=== PATIENT | male | born 1955 | race Hispanic/Latino ===

== ENCOUNTER 2019-01-24 04:03 | Inpatient (IN) | payer SELFPAY ==
[2019-01-24 05:32] LABS: Troponin I 0.216 ng/mL (< 0.028)
[2019-01-24] MEDS ORDERED: Ibuprofen 800 MG TAB ONE (06:23)
--- NOTE | 2019-01-24 07:15 | HP ---
PRESENTING COMPLAINT: Shortness of breath and fever. HISTORY OF PRESENT ILLNESS: Mr. Demarco Sena is a 64-year-old male with past medical history of hypertension, osteoarthritis, coronary artery disease status post SC 3 years ago who presented because of fever, chills, cough and shortness of breath. As per daughter, patient symptoms started since the last two weeks and slowly has been worsening. Daughter also states the patient has been having worsening leg swelling, which the family felt was due to arthritis. The patient is a poor historian, but admits to chills, cough and chest congestion. He states he has sputum with whitish phlegm. He admits to some mild headache, but denies any dizziness. The patient and daughter state he has never been told he has any heart failure symptoms. No history of any sick contacts. PAST MEDICAL HISTORY: Significant for hypertension, osteoarthritis, coronary artery disease with presumed SC 3 years ago. PAST SURGICAL HISTORY: Left cataract surgery. SOCIAL HISTORY: Patient resides in [place] and currently visiting family in the area. No history of tobacco use, history of occasional alcohol intake, but no illicit drug use. FAMILY HISTORY: Noncontributory. Family denies history of coronary artery disease or lung cancer. ALLERGIES: NO KNOWN DRUG ALLERGIES. HOME MEDICATIONS: Waiting nurse reconciliation. Family did not bring home medications yet. REVIEW OF SYSTEMS: Poor due to patient's shivering in bed. The patient denies except as mentioned above x10. PHYSICAL EXAMINATION: CURRENT VITAL SIGNS: Blood pressure 163/90, pulse of 106, respiratory rate of 28-30, O2 saturation 96% on room air, temperature 103. GENERAL: Obese middle-aged male, appears older than stated age. Intermittently drowsy, but arousable. HEAD: Atraumatic, normocephalic. Pupils are equal and reactive to light. Dry oral mucosa with mild fetor. NECK: No JVD. No carotid bruit. RESPIRATORY: Decreased breath sounds at bases and coarse crepitations bilaterally. No wheeze. CARDIOVASCULAR: S1, S2. Tachycardic. No reproducible chest wall tenderness. ABDOMEN: Full, soft, nontender, but bowel sounds positive in all 4 quadrants. EXTREMITIES: 2+ pedal edema bilaterally, but more prominent over the left lower extremity tenderness of left calf noted. NEUROLOGIC: The patient is drowsy, but easily arousable, conversant, poor historian. No slowness speech. No neurological focal motor deficit. LABORATORY DATA: Reviewed. Troponin of 0.216. Flu swab negative. Lactic acid 4.2, BNP of 2200. Chest x-ray shows presumed left lower lobe infiltrate. IMAGING: EKG shows sinus tachycardia with right bundle branch block. IMPRESSION: Left lower lobe pneumonia. Non ST elevation myocardial infarction, likely due to demand ischemia. Acute congestive heart failure exacerbation, likely systolic. Hypertension. Left lower extremity tenderness, rule out deep venous thrombosis. PLAN: We will admit the patient to the telemetry unit who will manage the patient with the followin. Left lower lobe pneumonia. We will start patient on empirical Rocephin and Levaquin. We will obtain blood culture x2. We would use sputum for culture and sensitivity. We will add oxygen to decrease respiratory rate or minimize tachypnea. We will monitor vitals closely. 2. Non-ST myocardial infarction. Consult cardiology. Serial set of cardiac enzymes. I will start the patient on aspirin for now. We will do Lovenox q.12h for now. 3. Presumed systolic congestive heart failure exacerbation. We will obtain echocardiogram. Start Lasix 40 mg q.12. Monitor potassium and magnesium. 4. Lower extremity tenderness. We will obtain Doppler ultrasound to rule out deep venous thrombosis. Follow with empirical heparin, Lovenox dosage. 5. Hypertension. We will obtain home medications. We will do p.r.n. hydralazine for now. We will also start low-dose Coreg given acute coronary syndrome. 6. Deep venous thrombosis prophylaxis, subcutaneous Lovenox. 7. Advanced directives, patient is full code. Total time spent in discussion and evaluation greater than 70 minutes. Job ID: [id number]
[2019-01-24] MEDS ORDERED: Aspirin Chewable 81 MG TAB PO SCH (08:16)
[2019-01-24] MEDS ORDERED: Dextrose 50 % In Water 50 ML SYRINGE IV PRN (08:16)
[2019-01-24] MEDS ORDERED: Guaifenesin DM 100-10/5 ML UDCUP PO PRN (08:16)
[2019-01-24] MEDS ORDERED: Dextrose 5% in Water 1,000 ML IV PRN (08:16)
[2019-01-24] MEDS ORDERED: Nitroglycerin 0.4 MG TAB (25 Tab Bottle) SL PRN (08:16)
[2019-01-24] MEDS ORDERED: Morphine 2 MG/ML SYRINGE SLOW IVP PRN (08:16)
[2019-01-24] MEDS ORDERED: HumaLOG 300 UNITS/3 ML VIAL SC PRN (08:16)
[2019-01-24 08:34] VITALS: BMI 27.2
[2019-01-24] MEDS ORDERED: Furosemide 40 MG/4 ML VIAL SLOW IVP SCH (08:45)
[2019-01-24] MEDS ORDERED: Enoxaparin Sodium 80 MG/0.8 ML SYRINGE SC SCH (09:00)
[2019-01-24] MEDS ORDERED: Lisinopril 2.5 MG TAB PO SCH (09:00)
[2019-01-24] MEDS ORDERED: Vancomycin HCl 1 GM in Premix Bag 1 BAG IVPB SCH (11:00)
[2019-01-24] MEDS: Metoprolol Tartrate 25 MG TAB PO SCH ×2 (11:03→20:41)
[2019-01-24] MEDS: Famotidine 20 MG TAB PO SCH (11:03)
[2019-01-24] MEDS: Cefepime 2 GM in Sodium Chloride 0.9% 100 ML IVPB SCH ×2 (11:24→21:55)
[2019-01-24 12:26] LABS: Creatinine, Urine 67.38 mg/dL (63-166); Protein, Urine Random Quant Less than 10 mg/dL (1-14); Sodium, Urine 72 mmol/L (Not Available); Urea Nitrogen, Random Urine 407 mg/dl
[2019-01-24 12:31] LABS: Anion Gap 17 mmol/L (10-20); BUN (Urea Nitrogen) 25 mg/dL (8.4-25.7); Calc. Creatinine Clearance 54 mL/min (70-130); Calcium 8.5 mg/dL (7.8-10.44); Carbon Dioxide 25 mmol/L (23-31); Chloride 101 mmol/L (98-107); Estimated GFR-MDRD 49; Glucose 85 mg/dL (80-115); Sodium 140 mmol/L (136-145)
[2019-01-24 12:34] LABS: Potassium 2.6 mmol/L (3.5-5.1)
[2019-01-24 12:35] LABS: Troponin I 0.272 ng/mL (< 0.028)
[2019-01-24] MEDS: Vancomycin HCl 1.25 GM in Sodium Chloride 0.9% 250 ML 250 ML IVPB SCH (13:14)
[2019-01-24] MEDS: Acetaminophen 325 MG TAB PO PRN ×2 (13:31→19:34)
[2019-01-24] MEDS: Potassium Chloride 20 MEQ TAB PO SCH ×3 (15:42→21:55)
--- NOTE | 2019-01-24 16:49 | CON ---
DATE OF CONSULTATION: 01/24/2019 INDICATION FOR CONSULTATION: A 64-year-old gentleman who presented with a pneumonia, who is actually from [place]. He was visiting his daughter. He has been here about 3 weeks. Apparently, he woke up last night with fever and chills. He was taken to the emergency room in [place]. He was then transferred here for further evaluation and treatment. He was found to have a right lower lobe pneumonia by chest x-ray. He also was noted to have a dilated heart on the chest x-ray and also his BNP was significantly elevated, compatible with congestive heart failure. He has had a myocardial infarction about 3 years ago. Apparently, he was in the hospital in [place] for about 2-3 weeks, but he only was offered medical treatment. There was no intervention performed. He has had no cardiac catheterization and no interventions as far as we can determine. He does have a history of hypertension, but he did not have any history of hypercholesterolemia or diabetes. He has never smoked. He had no early family history of heart disease. His EKG does indicate that he has had a previous myocardial infarction at least septal, but possibly also inferior myocardial infarction, unclear exactly where his MN was, but it is possible he had a significant myocardial infarction in the past. He denies any chest pain. He just had congestion, cough, and chills. Otherwise, he has been doing relatively well. 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 PAST MEDICAL HISTORY: Significant for; 1. Coronary artery disease. 2. Myocardial infarction about 3 years ago. 3. Hypertension. 4. Osteoarthritis. 5. He has had left cataract surgery. 6. He appears to have gout. SOCIAL HISTORY: He is actually or from his , who is actually also present in the room today. He has children, who are alive and well. His daughter was here today and she was an tin can laborer. He has no alcohol or tobacco abuse. FAMILY HISTORY: Noncontributory. There is no early family history or heart disease. MEDICATIONS: Prior to admission include captopril and nifedipine. ALLERGIES: NONE. REVIEW OF SYSTEMS: A 12-point review of systems is unremarkable except what is noted in the history of present illness. He denies any GI or complaints. Only musculoskeletal complaint is from his arthritis and gout. Otherwise, no history of seizures or syncope. PHYSICAL EXAMINATION: GENERAL: A middle-aged gentleman who is in no acute distress at this time. He was sleepy when I arrived in the room, he was easily arousable. HEENT: Unremarkable. NECK: Carotid pulses are present. I did not hear any bruits. CHEST: Actually has decreased breath sounds at the bases. He has occasional expiratory wheezes, more so on the right than the left and also at the base. CARDIOVASCULAR: Regular rate and rhythm. He has a normal S1 and S2. At times, it sounds as if he has an audible S3, it was uncertain due to some of the noise associated with his chest. GI: Unremarkable. Positive bowel sounds are present. No organomegaly or masses are noted. Femoral pulses are present. EXTREMITIES: No clubbing or cyanosis. He did have some mild erythema of the left lower extremity. Pedal pulses are present. NEUROLOGIC: He appears to be intact. VITAL SIGNS: His blood pressure was 120/77 and heart rate was about 90-100 and it shows a sinus rhythm. Earlier, he had a temperature of a 100.6, is now decreased down to 98.5, and O2 saturation is 95%. DIAGNOSTIC STUDIES: His EKG shows a sinus rhythm with decreased R-wave progression in V1 and V2 and also what appears to be Q-waves in 3 and aVF, compatible with old inferior myocardial infarction, possible anteroseptal myocardial infarction. He also has occasional PVCs noted. LABORATORY DATA: Troponin-I of 0.21, which increased up to 0.27. His BNP was 4533. His WBC was 14.6 with a hemoglobin of 15.8 and platelet count was 251 1000. Sodium was 140, potassium was 2.6, BUN was 25, and creatinine 1.45. IMPRESSION: 1. Elderly gentleman with recent onset of pneumonia, which is being treated by antibiotics. 2. What appears to be congestive heart failure with most likely has a cardiomyopathy after a myocardial infarction. He will need to be treated appropriately with beta blockers. He has already been on MARIANNA inhibitors, but treating with beta blockers, MARIANNA inhibitors and diuretics as needed. We will await the results of the echocardiogram prior to further recommendations. 3. History of coronary artery disease in the past. He appears to have suffered a myocardial infarction about 3 years ago, which most likely is the reason for his congestive heart failure at this time. 4. Hypertension. This is under good control at this time with medications. Since being in the hospital, he has been placed on Lovenox and I would decrease since this is no true indication of myocardial infarction most likely at this time. This maybe just type 2 myocardial infarction due to demand ischemia associated with the fever and probably diastolic dysfunction, again systolic dysfunction. We will await the echocardiogram results, but at this time would decrease his Lovenox to DVT prophylaxis since the enzymes are still indeterminate. He has not had any significant ST-segment changes to indicate ischemia and has no chest discomfort. We will continue with the Lasix as well as the metoprolol and nitroglycerin. Again, further recommendations will depend on the results of the echocardiogram. Job ID: [id number]
[2019-01-24] MEDS: Furosemide 40 MG/4 ML VIAL SLOW IVP SCH (17:46)
--- NOTE | 2019-01-24 20:19 | PDOC.HOSPP ---
- Subjective Encounter Date: 01/24/19 Encounter Time: 10:16 Subjective: 64 y/o male with CAD s/p GA, HTN, tophaceous gout admitted with worsening SOB and bilateral leg swelling associated with fever, chills, cough and left leg redness. CXR showed left lower lobe infiltrate. Started on diuretic and antibiotics for CHF exacerbation and sepsis. feeling better. - Objective Vital Signs & Weight: Vital Signs (12 hours) Temp Pulse Resp BP Pulse Ox 01/24/19 19:32 102.8 F H 83 20 118/67 95 01/24/19 16:00 100.9 F H 77 20 133/73 96 01/24/19 11:40 98.5 F 89 24 H 128/77 95 01/24/19 11:01 96 Weight Weight 168 lb 12.8 oz I&O: 01/23/19 01/24/19 01/25/19 06:59 06:59 06:59 Intake Total 1180 Balance 1180 Result Diagrams: 01/24/19 11:47 Additional Labs: Accuchecks 01/24/19 01/24/19 16:51 10:49 POC Glucose 100 100 Hospitalist ROS - Medication Medications: Active Medications Generic Name Dose Route Start Last Admin Trade Name Freq PRN Reason Stop Dose Admin Acetaminophen 650 mg 01/24/19 08:16 01/24/19 19:34 Tylenol PO 650 mg Q4H PRN Administration Headache/Fever/Mild Pain (1-3) Famotidine 20 mg 01/24/19 09:00 01/24/19 11:03 Pepcid PO 20 mg Q24HR KATARZYNA Administration Furosemide 40 mg 01/24/19 14:00 01/24/19 17:46 Lasix SLOW IVP 40 mg 0600,1400 KATARZYNA Administration Cefepime HCl 2 gm/ Sodium 100 mls @ 200 mls/hr 01/24/19 10:00 01/24/19 11:24 Chloride IVPB 100 mls 1000,2200 KATARZYNA Administration Vancomycin HCl 1.25 gm/ Sodium 250 mls @ 166.667 mls/hr 01/24/19 12:00 13:14 Chloride IVPB 250 mls 1200 KATARZYNA Administration Levofloxacin 750 mg/ Device 150 mls @ 100 mls/hr 01/24/19 14:00 01/24/19 15: 43 IVPB 150 mls Q2DAYS@1400 KATARZYNA Administration Metoprolol Tartrate 25 mg 01/24/19 09:00 01/24/19 11:03 Lopressor PO 25 mg BID KATARZYNA Administration Potassium Chloride 40 meq 01/24/19 15:00 01/24/19 19:34 K-Dur PO 01/24/19 23:01 40 meq Q4H KATARZYNA Administration - Exam General Appearance: awake alert Eye: anicteric sclera ENT: normocephalic atraumatic Neck: supple Heart: RRR Gastrointestinal: soft, non-tender, non-distended, normal bowel sounds Extremities: 2+ LE edema Extremities - other findings: Left second toe tip wound with scab and L leg/ foot erythema noted Neurological: cranial nerve grossly intact Musculoskeletal - other findings: multiple joints nodules/deformities noted Psychiatric: normal affect, A&O x 3 Hosp A/P (1) Sepsis Code(s): A41.9 - SEPSIS, UNSPECIFIED ORGANISM Status: Acute (2) Left lower lobe pneumonia Code(s): J18.9 - PNEUMONIA, UNSPECIFIED ORGANISM Status: Acute (3) Left leg cellulitis Code(s): L03.116 - CELLULITIS OF LEFT LOWER LIMB Status: Acute (4) Elevated troponin Code(s): R79.89 - OTHER SPECIFIED ABNORMAL FINDINGS OF BLOOD CHEMISTRY Status : Acute (5) Hypokalemia Code(s): E87.6 - HYPOKALEMIA Status: Acute (6) OLEAN (acute kidney injury) Code(s): N17.9 - ACUTE KIDNEY FAILURE, UNSPECIFIED Status: Acute (7) NSTEMI (non-ST elevated myocardial infarction) Code(s): I21.4 - NON-ST ELEVATION (NSTEMI) MYOCARDIAL INFARCTION Status: Acute (8) Fluid overload Code(s): E87.70 - FLUID OVERLOAD, UNSPECIFIED Status: Acute (9) CAD (coronary artery disease) Code(s): I25.10 - ATHSCL HEART DISEASE OF [place] CORONARY ARTERY W/O ANG PCTRS Status: Acute (10) HTN (hypertension) Code(s): I10 - ESSENTIAL (PRIMARY) HYPERTENSION Status: Acute (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 Monitor renal function and electrolytes
[2019-01-24] MEDS: Atorvastatin Calcium 40 MG TAB PO SCH (20:41)
[2019-01-24] MEDS: Ondansetron PF 4 MG/2 ML Vial IVP PRN (21:55)
[2019-01-25 05:08] LABS: Anion Gap 15 mmol/L (10-20); BUN (Urea Nitrogen) 33 mg/dL (8.4-25.7); Calc. Creatinine Clearance 37 mL/min (70-130); Calcium 8.3 mg/dL (7.8-10.44); Carbon Dioxide 28 mmol/L (23-31); Cardiac Risk 2.9 (Less than 4.5); Chloride 101 mmol/L (98-107); Cholesterol 63 mg/dl (< 200 Desired); Estimated GFR-MDRD 33; Glucose 88 mg/dL (80-115); HDL Cholesterol 22 mg/dL (>60 Neg Risk); LDL Cholesterol, Calculated 28 mg/dL; Potassium 3.9 mmol/L (3.5-5.1); Sodium 140 mmol/L (136-145); Triglycerides 66 mg/dL (Less than 150)
[2019-01-25 05:33] LABS: Band 19 % (5-11); Hemoglobin 14.6 g/dL (14.0-18.0); Lymphocytes 8 % (21-51); MDiff Complete? YES; Mean Corpuscular HGB CONC 32.4 g/dL (32.0-36.0); Mean Corpuscular Volume 95.7 fL (78.0-98.0); Mean Platelet Volume 9.5 fL (7.4-10.4); Metamyelocyte 1 % (0-0); Monocytes 4 % (0-10); Neutrophil 67 % (42-75); Platelet Count 157 thou/uL (130-400); Platelet Morphology Comment Appears Adequate; RBC Distribution Width 14.7 % (11.5-14.5); Reactive Lymphocytes 1 % (0-10); Red Blood Cell (RBC) Count 4.71 mill/uL (4.70-6.10); White Blood Cell (WBC) Count 22.3 thou/uL (4.8-10.8)
[2019-01-25] MEDS: Furosemide 40 MG/4 ML VIAL SLOW IVP SCH (06:10)
[2019-01-25] MEDS: Enoxaparin Sodium 40 MG/0.4 ML SYRINGE SC SCH (08:59)
[2019-01-25] MEDS: Famotidine 20 MG TAB PO SCH (08:59)
[2019-01-25] MEDS: Metoprolol Tartrate 25 MG TAB PO SCH ×2 (08:59→21:11)
[2019-01-25] MEDS ORDERED: FLU VACC TS2019-20(65YR UP)/PF 180 MCG/0.5 ML SYRINGE IM ONE (09:00)
[2019-01-25] MEDS ORDERED: Prevnar 13-Val Conj/PF 0.5 ML SYRINGE IM ONE (09:00)
--- NOTE | 2019-01-25 10:08 | ULT ---
EXAM: Bilateral lower extremity venous Doppler PROVIDED CLINICAL HISTORY: Lower leg edema FINDINGS: Grayscale and color Doppler sonography with spectral analysis was performed of the common femoral, fe moral, popliteal, posterior tibial, greater saphenous and profunda femoral veins bilaterally. The evaluated venous structures demonstrate a normal sonographic appearance. IMPRESSION: No sonographic evidence for lower extremity deep venous thrombosis.
--- NOTE | 2019-01-25 10:08 | ULT ---
EXAM: US Renal Bilateral STANDARD PROVIDED CLINICAL HISTORY: Acute kidney injury COMPARISON: None FINDINGS: Right kidney measures about 10.3 x 4.8 x 5.5 cm and demonstrates no evidence for hydronephrosis, sono graphically apparent calculus or mass. Left kidney measures about 9.9 x 5.7 x 5.3 cm and demonstrates no evidence for hydronephrosis, sonogr aphically apparent calculus or mass. Urinary bladder appears sonographically unremarkable. IMPRESSION: No evidence for hydronephrosis.
[2019-01-25] MEDS: Cefepime 2 GM in Sodium Chloride 0.9% 100 ML IVPB SCH ×2 (10:13→21:11)
[2019-01-25] MEDS: Vancomycin HCl 1.25 GM in Sodium Chloride 0.9% 250 ML 250 ML IVPB SCH (12:40)
--- NOTE | 2019-01-25 13:29 | PDOC.HOSPP ---
- Subjective Encounter Date: 01/25/19 Encounter Time: 13:28 Subjective: 64 y/o male with CAD s/p NV, HTN, tophaceous gout admitted with worsening SOB and bilateral leg swelling associated with fever, chills, cough and left leg redness. CXR showed left lower lobe infiltrate. Started on diuretic and antibiotics for CHF exacerbation and sepsis. feeling better but still with left leg pain and bilateral leg edema. Also complaining of left knee pain. - Objective Vital Signs & Weight: Vital Signs (12 hours) Temp Pulse Resp BP Pulse Ox 01/25/19 12:00 98.1 F 82 16 104/65 97 01/25/19 08:59 94 L 01/25/19 07:51 98.1 F 75 16 116/72 94 L 01/25/19 05:25 95 01/25/19 04:00 99.7 F H 75 20 120/77 95 Weight Weight 162 lb I&O: 01/24/19 01/25/19 01/26/19 06:59 06:59 06:59 Intake Total 1830 Output Total 350 Balance 1830 -350 Result Diagrams: 01/25/19 04:33 01/25/19 04:33 Additional Labs: Accuchecks 01/25/19 01/25/19 01/24/19 10:49 05:54 19:57 POC Glucose 88 79 107 01/24/19 16:51 POC Glucose 100 Hospitalist ROS - Medication Medications: Active Medications Generic Name Dose Route Start Last Admin Trade Name Freq PRN Reason Stop Dose Admin Acetaminophen 650 mg 01/24/19 08:16 01/24/19 19:34 Tylenol PO 650 mg Q4H PRN Administration Headache/Fever/Mild Pain (1-3) Atorvastatin Calcium 40 mg 01/24/19 21:00 01/24/19 20:41 Lipitor PO 40 mg HS KATARZYNA Administration Enoxaparin Sodium 40 mg 01/25/19 09:00 01/25/19 08:59 Lovenox SC 40 mg 0900 KATARZYNA Administration Famotidine 20 mg 01/24/19 09:00 01/25/19 08:59 Pepcid PO 20 mg Q24HR KATARZYNA Administration Cefepime HCl 2 gm/ Sodium 100 mls @ 200 mls/hr 01/24/19 10:00 01/25/19 10:13 Chloride IVPB 100 mls 1000,2200 KATARZYNA Administration Vancomycin HCl 1.25 gm/ Sodium 250 mls @ 166.667 mls/hr 01/24/19 12:00 12:40 Chloride IVPB 250 mls 1200 KATARZYNA Administration Levofloxacin 750 mg/ Device 150 mls @ 100 mls/hr 01/24/19 14:00 01/24/19 15: 43 IVPB 150 mls Q2DAYS@1400 KATARZYNA Administration Metoprolol Tartrate 25 mg 01/24/19 09:00 01/25/19 08:59 Lopressor PO 25 mg BID KATARZYNA Administration Ondansetron HCl 4 mg 01/24/19 08:16 01/24/19 21:55 Zofran IVP 4 mg Q6H PRN Administration Nausea/Vomiting - Exam General Appearance: awake alert Eye: anicteric sclera ENT: normocephalic atraumatic Neck: supple, symmetric, no JVD Heart: RRR, murmur present Respiratory: no wheezes, no ronchi, normal chest expansion, no tachypnea Respiratory - other findings: fair air entry Gastrointestinal: soft, non-tender, non-distended, normal bowel sounds Extremities - other findings: bilateral leg edema L>R. tophi of several joints noted. L Knee tenderness Skin - other findings: mild erythema of left leg Neurological: cranial nerve grossly intact, no focal deficits Psychiatric: A&O x 3 Hosp A/P (1) Sepsis Code(s): A41.9 - SEPSIS, UNSPECIFIED ORGANISM Status: Acute (2) Left lower lobe pneumonia Code(s): J18.9 - PNEUMONIA, UNSPECIFIED ORGANISM Status: Acute (3) Left leg cellulitis Code(s): L03.116 - CELLULITIS OF LEFT LOWER LIMB Status: Acute (4) Elevated troponin Code(s): R79.89 - OTHER SPECIFIED ABNORMAL FINDINGS OF BLOOD CHEMISTRY Status : Acute (5) Hypokalemia Code(s): E87.6 - HYPOKALEMIA Status: Acute (6) OLENA (acute kidney injury) Code(s): N17.9 - ACUTE KIDNEY FAILURE, UNSPECIFIED Status: Acute (7) NSTEMI (non-ST elevated myocardial infarction) Code(s): I21.4 - NON-ST ELEVATION (NSTEMI) MYOCARDIAL INFARCTION Status: Acute (8) Fluid overload Code(s): E87.70 - FLUID OVERLOAD, UNSPECIFIED Status: Acute (9) CAD (coronary artery disease) Code(s): I25.10 - ATHSCL HEART DISEASE OF [place] CORONARY ARTERY W/O ANG PCTRS Status: Acute (10) HTN (hypertension) Code(s): I10 - ESSENTIAL (PRIMARY) HYPERTENSION Status: Acute (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 Start colchicine for acute gout. Start allopurinol for hyperuricemia. Also get uric acid creat ratio. Hold diuretic due to acute increase in creat elevate lower extremities. Get Lower extremity dopplers and renal US. Monitor renal function and electrolytes
[2019-01-25] MEDS ORDERED: Magnesium Sulfate 4 GM in Sodium Chloride 0.9% 250 ML 250 ML IVPB SCH (13:45)
[2019-01-25] MEDS: Acetaminophen 325 MG TAB PO PRN (15:35)
--- NOTE | 2019-01-25 17:36 | PDOC.CPN ---
- Subjective Date: 01/25/19 Time: 17:34 Interval history: The pt seen and examined. No overnight events. No Cardiac complaints. - Objective Allergies/Adverse Reactions: Allergies Allergy/AdvReac Type Severity Reaction Status Date / Time No Known Allergies Allergy Verified 01/24/19 09:00 Visit Medications: Current Medications Acetaminophen (Tylenol) 650 mg PO Q4H PRN PRN Reason: Headache/Fever/Mild Pain (1-3) Last Admin: 01/25/19 15:35 Dose: 650 mg Hydrocodone Bitart/Acetaminophen ([place] 5/325) 1 tab PO Q6H PRN PRN Reason: Pain Albuterol/Ipratropium (Duoneb) 3 ml NEB [id number] PRN PRN Reason: SOB &/or Wheezing Allopurinol (Zyloprim) 200 mg PO DAILY [facility] Atorvastatin Calcium (Lipitor) 40 mg PO HS [facility] Last Admin: 01/24/19 20:41 Dose: 40 mg Dextrose/Water (Dextrose 50%-Water Syringe) 50 ml IV PRN PRN PRN Reason: Hypoglycemia Enoxaparin Sodium (Lovenox) 40 mg SC 0900 [facility] Last Admin: 01/25/19 08:59 Dose: 40 mg Famotidine (Pepcid) 20 mg PO Q24HR [facility] Last Admin: 01/25/19 08:59 Dose: 20 mg Glucagon (Glucagon) 1 mg IM PRN PRN PRN Reason: Hypoglycemia Guaifenesin/Dextromethorphan (Robitussin Dm) 15 ml PO Q4H PRN PRN Reason: Cough Cefepime HCl 2 gm/ Sodium (Chloride) 100 mls @ 200 mls/hr IVPB 1000,2200 [facility] Last Admin: 01/25/19 10:13 Dose: 100 mls Dextrose/Water (D5w) 1,000 mls @ 0 mls/hr IV .Q0M PRN PRN Reason: Hypoglycemia Vancomycin HCl 1.25 gm/ Sodium (Chloride) 250 mls @ 166.667 mls/hr IVPB 1200 [facility] Last Admin: 01/25/19 12:40 Dose: 250 mls Levofloxacin 750 mg/ Device 150 mls @ 100 mls/hr IVPB Q2DAYS@1400 [facility] Last Admin: 01/24/19 15:43 Dose: 150 mls Insulin Human Lispro (Humalog) 0 units SC .MODERATE SLIDING SC PRN PRN Reason: Moderate Correctional Scale Metoprolol Tartrate (Lopressor) 25 mg PO BID KATARZYNA Last Admin: 01/25/19 08:59 Dose: 25 mg Miscellaneous Medication (Pharmacy To Dose) 1 each IVPB PRN PRN PRN Reason: Pharmacy to dose Morphine Sulfate (Morphine) 2 mg SLOW IVP Q5MIN PRN PRN Reason: Chest Pain Nitroglycerin (Nitrostat) 0.4 mg SL Q5MIN PRN PRN Reason: Chest Pain Ondansetron HCl (Zofran) 4 mg IVP Q6H PRN PRN Reason: Nausea/Vomiting Last Admin: 01/24/19 21:55 Dose: 4 mg Vital Signs & Weight: Vital Signs Temp Pulse Pulse Pulse Resp BP BP 01/25/19 15:45 99.3 F 75 16 01/25/19 13:10 72 75 112/83 114/80 01/25/19 12:00 98.1 F 82 16 01/25/19 08:59 01/25/19 07:51 98.1 F 75 16 BP Pulse Ox 01/25/19 15:45 111/76 96 01/25/19 13:10 01/25/19 12:00 104/65 97 01/25/19 08:59 94 L 01/25/19 07:51 116/72 94 L Weight 162 lb - Physical Exam General: alert & oriented x3 Neck: supple neck Cardiac: regular rate and rhythm, S1/S2 Lungs: clear to auscultation, decreased breath sounds - Labs Result Diagrams: 01/25/19 04:33 01/25/19 04:33 Troponin/CKMB Troponin I 0.272 ng/mL (< 0.028) H 01/24/19 11:53 - Telemetry Sinus rhythms and dysrhythmias: sinus rhythm - Assessment/Plan Assessment/Plan: 1. Acute on Chronic systolic HF with EF 20-25% - stable with RA; on Lasix and bblocker; holding MARIANNA/ARB for now 2. Ischemic CMY - possible LHC for decreased EF when his infection is clear depending on symptoms. Could consider a nuclear study. If there is a large area of scar. Continue medical treatment. Consider cath if reversible ischemia is noted. 3. PNA - on ABX IV; 4. Lt leg cellulitis - 5. hx of [place] in 2016 with medical tx only - 6. HTN - stable 7. OLENA - 8. Gout - MAR reviewed * Echo on 01/24/2019 with EF 20-25%, akinetic anterior wall, septum and apex, mild ERV, mod dilated LA, mod ERA, mild MR, AR, TR, and ND Pt. seen and eval. by me. I agree with the A/P by the CLINICAL EDUCATOR.
[2019-01-25] MEDS: HYDROcodone/Acetaminophen 5/325 mg Tablet PO PRN (18:26)
[2019-01-25] MEDS: Atorvastatin Calcium 40 MG TAB PO SCH (21:11)
[2019-01-26 05:11] LABS: #Basophils 0.1 thou/uL (0.0-0.2); #Eosinphils 0.2 thou/uL (0.0-0.7); #Lymphocytes 2.2 thou/uL (1.20-3.40); #Monocytes 0.7 thou/uL (0.11-0.59); #Neutrophils 14.9 thou/uL (1.40-6.50); %Basophils 0.5 % (0.0-1.0); %Monocytes 3.8 % (0.0-10.0); %Neutrophils 82.7 % (42.0-75.0); Hemoglobin 15.1 g/dL (14.0-18.0); Mean Corpuscular HGB CONC 30.9 g/dL (32.0-36.0); Mean Corpuscular Hemoglobin 29.8 pg (27.0-31.0); Mean Corpuscular Volume 96.4 fL (78.0-98.0); Mean Platelet Volume 9.7 fL (7.4-10.4); Platelet Count 132 thou/uL (130-400); RBC Distribution Width 14.7 % (11.5-14.5); Red Blood Cell (RBC) Count 5.05 mill/uL (4.70-6.10)
[2019-01-26] MEDS: HYDROcodone/Acetaminophen 5/325 mg Tablet PO PRN (05:22)
[2019-01-26 05:36] LABS: Albumin 3.1 g/dL (3.4-4.8); Anion Gap 16 mmol/L (10-20); BUN (Urea Nitrogen) 36 mg/dL (8.4-25.7); BUN/Creatinine Ratio 17.73; Calc. Creatinine Clearance 38 mL/min (70-130); Calcium 8.7 mg/dL (7.8-10.44); Carbon Dioxide 21 mmol/L (23-31); Chloride 101 mmol/L (98-107); Estimated GFR-MDRD 33; Glucose 82 mg/dL (80-115); Phosphorus 3.6 mg/dL (2.3-4.7); Potassium 3.9 mmol/L (3.5-5.1); Sodium 134 mmol/L (136-145)
[2019-01-26 05:38] LABS: Troponin I 0.228 ng/mL (< 0.028)
[2019-01-26] MEDS: Allopurinol 100 MG TAB PO SCH (10:18)
[2019-01-26] MEDS: Metoprolol Tartrate 25 MG TAB PO SCH ×2 (10:18→21:47)
[2019-01-26] MEDS: Famotidine 20 MG TAB PO SCH (10:19)
[2019-01-26] MEDS: Enoxaparin Sodium 40 MG/0.4 ML SYRINGE SC SCH (10:19)
[2019-01-26 11:38] LABS: Vancomycin, Trough 17.2 ug/mL
--- NOTE | 2019-01-26 11:44 | PDOC.HOSPP ---
- Subjective Encounter Date: 01/26/19 Encounter Time: 11:42 Subjective: 64 y/o male with CAD s/p OK, HTN, tophaceous gout admitted with worsening SOB and bilateral leg swelling associated with fever, chills, cough and left leg redness. CXR showed left lower lobe infiltrate suggestive of pneumonia. Also found to have left leg redness and pain. Hence started on diuretic and antibiotics for CHF exacerbation and sepsis. Still having left knee and leg pain. swelling has improved especially on the right. - Objective Vital Signs & Weight: Vital Signs (12 hours) Temp Pulse Resp BP Pulse Ox 01/26/19 11:36 97.7 F 65 16 117/79 96 01/26/19 08:33 97 01/26/19 07:42 97.8 F 66 16 125/81 97 01/26/19 05:41 95 01/26/19 04:00 98 F 70 16 121/82 95 01/25/19 23:54 97.8 F 64 20 114/76 98 Weight Weight 166 lb 5 oz I&O: 01/25/19 01/26/19 01/27/19 06:59 06:59 06:59 Intake Total 1830 1600 Output Total 450 Balance 1830 1150 Result Diagrams: 01/26/19 04:55 01/26/19 04:55 Additional Labs: Accuchecks 01/26/19 01/25/19 01/25/19 06:03 19:45 17:02 POC Glucose 93 104 107 Hospitalist ROS - Medication Medications: Active Medications Generic Name Dose Route Start Last Admin Trade Name Freq PRN Reason Stop Dose Admin Acetaminophen 650 mg 01/24/19 08:16 01/25/19 15:35 Tylenol PO 650 mg Q4H PRN Administration Headache/Fever/Mild Pain (1-3) Hydrocodone Bitart/Acetaminophen 1 tab 01/25/19 16:55 01/26/19 05:22 [place] 5/325 PO 1 tab Q6H PRN Administration Pain Allopurinol 200 mg 01/26/19 09:00 01/26/19 10:18 Zyloprim PO 200 mg DAILY KATARZYNA Administration Atorvastatin Calcium 40 mg 01/24/19 21:00 01/25/19 21:11 Lipitor PO 40 mg HS KATARZYNA Administration Colchicine 0.6 mg 01/26/19 09:00 01/26/19 10:21 Colchicine PO Not Given DAILY [facility] Enoxaparin Sodium 40 mg 01/25/19 09:00 01/26/19 10:19 Lovenox SC 40 mg 0900 KATARZYNA Administration Famotidine 20 mg 01/24/19 09:00 01/26/19 10:19 Pepcid PO 20 mg Q24HR KATARZYNA Administration Cefepime HCl 2 gm/ Sodium 100 mls @ 200 mls/hr 01/24/19 10:00 01/25/19 21:11 Chloride IVPB 100 mls 1000,2200 KATARZYNA Administration Vancomycin HCl 1.25 gm/ Sodium 250 mls @ 166.667 mls/hr 01/24/19 12:00 12:40 Chloride IVPB 250 mls 1200 KATARZYNA Administration Levofloxacin 750 mg/ Device 150 mls @ 100 mls/hr 01/24/19 14:00 01/24/19 15: 43 IVPB 150 mls Q2DAYS@1400 KATARZYNA Administration Metoprolol Tartrate 25 mg 01/24/19 09:00 01/26/19 10:18 Lopressor PO 25 mg BID KATARZYNA Administration Ondansetron HCl 4 mg 01/24/19 08:16 01/24/19 21:55 Zofran IVP 4 mg Q6H PRN Administration Nausea/Vomiting - Exam General Appearance: awake alert Eye: anicteric sclera ENT: normocephalic atraumatic Neck: symmetric, no JVD Heart: RRR Respiratory: no wheezes, no rales, no ronchi, normal chest expansion, no tachypnea Gastrointestinal: soft, non-tender, non-distended, normal bowel sounds Extremities - other findings: trace right and moderate Left leg edema. Skin - other findings: Mild left leg erythema Neurological: cranial nerve grossly intact, no focal deficits Psychiatric: A&O x 3 Hosp A/P (1) Sepsis Code(s): A41.9 - SEPSIS, UNSPECIFIED ORGANISM Status: Acute (2) Left lower lobe pneumonia Code(s): J18.9 - PNEUMONIA, UNSPECIFIED ORGANISM Status: Acute (3) Left leg cellulitis Code(s): L03.116 - CELLULITIS OF LEFT LOWER LIMB Status: Acute (4) Elevated troponin Code(s): R79.89 - OTHER SPECIFIED ABNORMAL FINDINGS OF BLOOD CHEMISTRY Status : Acute (5) Hypokalemia Code(s): E87.6 - HYPOKALEMIA Status: Acute (6) OLENA (acute kidney injury) Code(s): N17.9 - ACUTE KIDNEY FAILURE, UNSPECIFIED Status: Acute (7) NSTEMI (non-ST elevated myocardial infarction) Code(s): I21.4 - NON-ST ELEVATION (NSTEMI) MYOCARDIAL INFARCTION Status: Acute (8) Fluid overload Code(s): E87.70 - FLUID OVERLOAD, UNSPECIFIED Status: Acute (9) CAD (coronary artery disease) Code(s): I25.10 - ATHSCL HEART DISEASE OF [place] CORONARY ARTERY W/O ANG PCTRS Status: Acute (10) HTN (hypertension) Code(s): I10 - ESSENTIAL (PRIMARY) HYPERTENSION Status: Acute (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 Elevated left leg Continue colchicine and allopurinol for acute gout and hyperuricemia Hold diuretic due to acute increase in creat Monitor renal function and electrolytes. Evaluation of cardiomyopathy as per cardiology
[2019-01-26] MEDS: Cefepime 2 GM in Sodium Chloride 0.9% 100 ML IVPB SCH ×2 (12:52→22:48)
--- NOTE | 2019-01-26 13:00 | PDOC.CPN ---
- Subjective Date: 01/26/19 Time: 13:01 Interval history: The pt seen and examined. No overnight events. No cardiac complaints. - Objective Allergies/Adverse Reactions: Allergies Allergy/AdvReac Type Severity Reaction Status Date / Time No Known Allergies Allergy Verified 01/24/19 09:00 Visit Medications: Current Medications Acetaminophen (Tylenol) 650 mg PO Q4H PRN PRN Reason: Headache/Fever/Mild Pain (1-3) Last Admin: 01/25/19 15:35 Dose: 650 mg Hydrocodone Bitart/Acetaminophen ([place] 5/325) 1 tab PO Q6H PRN PRN Reason: Pain Last Admin: 01/26/19 05:22 Dose: 1 tab Albuterol/Ipratropium (Duoneb) 3 ml NEB [id number] PRN PRN Reason: SOB &/or Wheezing Allopurinol (Zyloprim) 200 mg PO DAILY [facility] Last Admin: 01/26/19 10:18 Dose: 200 mg Atorvastatin Calcium (Lipitor) 40 mg PO HS [facility] Last Admin: 01/25/19 21:11 Dose: 40 mg Colchicine (Colchicine) 0.6 mg PO DAILY [facility] Last Admin: 01/26/19 10:21 Dose: Not Given Dextrose/Water (Dextrose 50%-Water Syringe) 50 ml IV PRN PRN PRN Reason: Hypoglycemia Enoxaparin Sodium (Lovenox) 40 mg SC 0900 [facility] Last Admin: 01/26/19 10:19 Dose: 40 mg Famotidine (Pepcid) 20 mg PO Q24HR [facility] Last Admin: 01/26/19 10:19 Dose: 20 mg Glucagon (Glucagon) 1 mg IM PRN PRN PRN Reason: Hypoglycemia Guaifenesin/Dextromethorphan (Robitussin Dm) 15 ml PO Q4H PRN PRN Reason: Cough Cefepime HCl 2 gm/ Sodium (Chloride) 100 mls @ 200 mls/hr IVPB 1000,2200 [facility] Last Admin: 01/25/19 21:11 Dose: 100 mls Dextrose/Water (D5w) 1,000 mls @ 0 mls/hr IV .Q0M PRN PRN Reason: Hypoglycemia Vancomycin HCl 1.25 gm/ Sodium (Chloride) 250 mls @ 166.667 mls/hr IVPB 1200 [facility] Last Admin: 01/25/19 12:40 Dose: 250 mls Levofloxacin 750 mg/ Device 150 mls @ 100 mls/hr IVPB Q2DAYS@1400 [facility] Last Admin: 01/24/19 15:43 Dose: 150 mls Insulin Human Lispro (Humalog) 0 units SC .MODERATE SLIDING SC PRN PRN Reason: Moderate Correctional Scale Metoprolol Tartrate (Lopressor) 25 mg PO BID [facility] Last Admin: 01/26/19 10:18 Dose: 25 mg Miscellaneous Medication (Pharmacy To Dose) 1 each IVPB PRN PRN PRN Reason: Pharmacy to dose Morphine Sulfate (Morphine) 2 mg SLOW IVP Q5MIN PRN PRN Reason: Chest Pain Nitroglycerin (Nitrostat) 0.4 mg SL Q5MIN PRN PRN Reason: Chest Pain Ondansetron HCl (Zofran) 4 mg IVP Q6H PRN PRN Reason: Nausea/Vomiting Last Admin: 01/24/19 21:55 Dose: 4 mg Vital Signs & Weight: Vital Signs Temp Pulse Resp BP Pulse Ox 01/26/19 11:36 97.7 F 65 16 117/79 96 01/26/19 08:33 97 01/26/19 07:42 97.8 F 66 16 125/81 97 01/26/19 05:41 95 01/26/19 04:00 98 F 70 16 121/82 95 Weight 166 lb 5 oz - Physical Exam General: alert & oriented x3 HEENT: mucus membranes moist Neck: supple neck Cardiac: regular rate and rhythm, S1/S2 Lungs: clear to auscultation, decreased breath sounds Neuro: cranial nerve 2-12 intact Abdomen: unremarkable Extremities: no cyanosis Skin: other (erythema with swelling to LLE) - Labs Result Diagrams: 01/26/19 04:55 01/26/19 04:55 Troponin/CKMB Troponin I 0.228 ng/mL (< 0.028) H 01/26/19 04:55 - Assessment/Plan Assessment/Plan: 1. Acute on Chronic systolic HF with EF 20-25% - stable with RA; on Lasix and bblocker; holding MARIANNA/ARB for now 2. Ischemic CMY - possible LHC for decreased EF when his infection is clear depending on symptoms. Could consider a nuclear study first. If there is a large area of scar then continue medical treatment. Consider cath if reversible ischemia is noted. 3. PNA - on ABX IV; 4. Lt leg cellulitis - 5. hx of [place] in 2016 with medical tx only - 6. HTN - stable 7. OLENA - 8. Gout - MAR reviewed * Echo on 01/24/2019 with EF 20-25%, akinetic anterior wall, septum and apex, mild ERV, mod dilated LA, mod ERA, mild MR, AR, TR, and SC pt. seen and eval. by me. i agree with the a/P. Seems to be a little better today. Chest clear. RRR, edema and erythema of left lower leg. gjmays
[2019-01-26] MEDS: Vancomycin HCl 1.25 GM in Sodium Chloride 0.9% 250 ML 250 ML IVPB SCH (13:48)
[2019-01-26] MEDS: Ondansetron PF 4 MG/2 ML Vial IVP PRN (15:48)
[2019-01-26] MEDS: Atorvastatin Calcium 40 MG TAB PO SCH (21:47)
[2019-01-27 05:25] LABS: Albumin 2.9 g/dL (3.4-4.8); Anion Gap 13 mmol/L (10-20); BUN (Urea Nitrogen) 37 mg/dL (8.4-25.7); BUN/Creatinine Ratio 20.22; Calc. Creatinine Clearance 42 mL/min (70-130); Calcium 8.8 mg/dL (7.8-10.44); Carbon Dioxide 25 mmol/L (23-31); Chloride 100 mmol/L (98-107); Estimated GFR-MDRD 37; Glucose 78 mg/dL (80-115); Phosphorus 3.2 mg/dL (2.3-4.7); Potassium 3.3 mmol/L (3.5-5.1); Sodium 135 mmol/L (136-145)
--- NOTE | 2019-01-27 07:51 | PDOC.HOSPP ---
- Subjective Encounter Date: 01/27/19 Encounter Time: 07:49 Subjective: 64 y/o male with CAD s/p [place], HTN, tophaceous gout admitted with worsening SOB and bilateral leg swelling associated with fever, chills, cough and left leg redness. CXR showed left lower lobe infiltrate suggestive of pneumonia. Also found to have left leg redness and pain. Hence started on diuretic and antibiotics for CHF exacerbation and sepsis. coughing with greenish sputum production. Left knee and leg pain, redness and swelling are improving. - Objective Vital Signs & Weight: Vital Signs (12 hours) Temp Pulse Resp BP Pulse Ox 01/27/19 03:39 98.2 F 80 16 154/93 H 99 01/26/19 23:38 98.8 F 67 16 136/88 96 01/26/19 20:00 100 Weight Weight 165 lb 4.8 oz I&O: 01/26/19 01/27/19 01/28/19 06:59 06:59 06:59 Intake Total 1600 1140 Output Total 450 250 Balance 1150 890 Result Diagrams: 01/26/19 04:55 01/27/19 04:28 Additional Labs: Accuchecks 01/26/19 19:38 POC Glucose 97 Hospitalist ROS - Medication Medications: Active Medications Generic Name Dose Route Start Last Admin Trade Name Freq PRN Reason Stop Dose Admin Acetaminophen 650 mg 01/24/19 08:16 01/25/19 15:35 Tylenol PO 650 mg Q4H PRN Administration Headache/Fever/Mild Pain (1-3) Hydrocodone Bitart/Acetaminophen 1 tab 01/25/19 16:55 01/26/19 05:22 [place] 5/325 PO 1 tab Q6H PRN Administration Pain Allopurinol 200 mg 01/26/19 09:00 01/26/19 10:18 Zyloprim PO 200 mg DAILY KATARZYNA Administration Atorvastatin Calcium 40 mg 01/24/19 21:00 01/26/19 21:47 Lipitor PO 40 mg HS KATARZYNA Administration Colchicine 0.6 mg 01/26/19 09:00 01/26/19 10:21 Colchicine PO Not Given DAILY KATARZYNA Enoxaparin Sodium 40 mg 01/25/19 09:00 01/26/19 10:19 Lovenox SC 40 mg 0900 KATARZYNA Administration Famotidine 20 mg 01/24/19 09:00 01/26/19 10:19 Pepcid PO 20 mg Q24HR KATARZYNA Administration Cefepime HCl 2 gm/ Sodium 100 mls @ 200 mls/hr 01/24/19 10:00 01/26/19 22:48 Chloride IVPB 100 mls 1000,2200 KATARZYNA Administration Vancomycin HCl 1.25 gm/ Sodium 250 mls @ 166.667 mls/hr 01/24/19 12:00 13:48 Chloride IVPB 250 mls 1200 KATARZYNA Administration Levofloxacin 750 mg/ Device 150 mls @ 100 mls/hr 01/24/19 14:00 01/26/19 15: 51 IVPB 150 mls Q2DAYS@1400 KATARZYNA Administration Metoprolol Tartrate 25 mg 01/24/19 09:00 01/26/19 21:47 Lopressor PO 25 mg BID KATARZYNA Administration Ondansetron HCl 4 mg 01/24/19 08:16 01/26/19 15:48 Zofran IVP 4 mg Q6H PRN Administration Nausea/Vomiting - Exam General Appearance: awake alert Eye: anicteric sclera ENT: normocephalic atraumatic, moist mucosa Neck: supple, symmetric, no JVD Heart: RRR, murmur present Respiratory: no wheezes, no ronchi, normal chest expansion Respiratory - other findings: fair air entry with few transmitted sound vs crackles. Gastrointestinal: soft, non-tender, non-distended, normal bowel sounds Extremities: no cyanosis Extremities - other findings: mild right moderate left leg edema. L leg erythema noted Neurological: cranial nerve grossly intact, no focal deficits Psychiatric: normal affect, A&O x 3 Hosp A/P (1) Streptococcal bacteremia Code(s): R78.81 - BACTEREMIA; B95.5 - UNSP STREPTOCOCCUS THE CAUSE OF DISEASES CLASSD ELSWHR Status: Acute (2) Sepsis Code(s): A41.9 - SEPSIS, UNSPECIFIED ORGANISM Status: Acute (3) Left lower lobe pneumonia Code(s): J18.9 - PNEUMONIA, UNSPECIFIED ORGANISM Status: Acute (4) Left leg cellulitis Code(s): L03.116 - CELLULITIS OF LEFT LOWER LIMB Status: Acute (5) Elevated troponin Code(s): R79.89 - OTHER SPECIFIED ABNORMAL FINDINGS OF BLOOD CHEMISTRY Status : Acute (6) Hypokalemia Code(s): E87.6 - HYPOKALEMIA Status: Acute (7) OLENA (acute kidney injury) Code(s): N17.9 - ACUTE KIDNEY FAILURE, UNSPECIFIED Status: Acute (8) NSTEMI (non-ST elevated myocardial infarction) Code(s): I21.4 - NON-ST ELEVATION (NSTEMI) MYOCARDIAL INFARCTION Status: Acute (9) Fluid overload Code(s): E87.70 - FLUID OVERLOAD, UNSPECIFIED Status: Acute (10) CAD (coronary artery disease) Code(s): I25.10 - ATHSCL HEART DISEASE OF [place] CORONARY ARTERY W/O ANG PCTRS Status: Acute (11) HTN (hypertension) Code(s): I10 - ESSENTIAL (PRIMARY) HYPERTENSION Status: Acute (12) Chronic tophaceous gout Code(s): M1A.9XX1 - CHRONIC GOUT, UNSPECIFIED, WITH TOPHUS (TOPHI) Status: Acute (13) Acute gout Code(s): M10.9 - GOUT, UNSPECIFIED Status: Acute (14) Hyperuricemia Code(s): E79.0 - HYPERURICEMIA W/O SIGNS OF INFLAM ARTHRIT AND TOPHACEOUS DIS Status: Acute (15) Bilateral edema of lower extremity Code(s): R60.0 - LOCALIZED EDEMA Status: Acute (16) Cardiomyopathy Code(s): I42.9 - CARDIOMYOPATHY, UNSPECIFIED Status: Acute (17) Acute on chronic systolic heart failure Code(s): I50.23 - ACUTE ON CHRONIC SYSTOLIC (CONGESTIVE) HEART FAILURE Status : Acute (18) Infection due to Streptococcus agalactiae Code(s): A49.1 - STREPTOCOCCAL INFECTION, UNSPECIFIED SITE Status: Acute - Plan DC IV vanc and Cefepime and start IV rocephin for strept agalactiae bacteremia. Consult ID as endocarditis is a concern Start mucinex. Elevated left leg Continue colchicine and allopurinol for acute gout and hyperuricemia Hold diuretic due to acute increase in creat Get repeat CXR Monitor renal function and electrolytes. Evaluation of cardiomyopathy as per cardiology Increase activity as tolerated.
[2019-01-27] MEDS ORDERED: cefTRIAXone\\ROCEPHIN 2 GM in Sodium Chloride 0.9% 100 ML IVPB SCH (08:00)
--- NOTE | 2019-01-27 09:09 | RAD ---
RADIOGRAPH CHEST 1 VIEW: Date: 01/27/19 Time: 0845 HOURS HISTORY: 64-year-old male with pneumonia. COMPARISON: 01/24/19. FINDINGS: There is a small left pleural effusion, either new or increased since the prior study. Widening of tr ansverse diameter of the cardiac silhouette. Some of this is due to magnification, but some of it cou ld represent actual cardiomegaly. Minimal pulmonary venous congestion. No consolidation or jennifer pulm onary edema. Left lower lobe lung base is partially obscured by the cardiomegaly. The rest of the vis ualized lung silverman are otherwise grossly clear. Right lateral costophrenic angle is sharp. No pneumo thorax. IMPRESSION: 1. Cardiomegaly. 2. Small left pleural effusion. JN [] POS: OFF
[2019-01-27] MEDS: Enoxaparin Sodium 40 MG/0.4 ML SYRINGE SC SCH (10:24)
[2019-01-27] MEDS: Famotidine 20 MG TAB PO SCH (10:25)
[2019-01-27] MEDS: Allopurinol 100 MG TAB PO SCH (10:25)
[2019-01-27] MEDS: guaiFENesin ER 600 MG TAB PO SCH ×2 (10:25→21:55)
[2019-01-27] MEDS: Metoprolol Tartrate 25 MG TAB PO SCH (10:25)
--- NOTE | 2019-01-27 13:26 | PDOC.CPN ---
- Subjective Date: 01/27/19 Time: 13:27 Interval history: The pt seen and examined. No overnight events. No cardiac complaints. - Objective Allergies/Adverse Reactions: Allergies Allergy/AdvReac Type Severity Reaction Status Date / Time No Known Allergies Allergy Verified 01/24/19 09:00 Visit Medications: Current Medications Acetaminophen (Tylenol) 650 mg PO Q4H PRN PRN Reason: Headache/Fever/Mild Pain (1-3) Last Admin: 01/25/19 15:35 Dose: 650 mg Hydrocodone Bitart/Acetaminophen ([place] 5/325) 1 tab PO Q6H PRN PRN Reason: Pain Last Admin: 01/26/19 05:22 Dose: 1 tab Albuterol/Ipratropium (Duoneb) 3 ml NEB [id number] PRN PRN Reason: SOB &/or Wheezing Allopurinol (Zyloprim) 200 mg PO DAILY [facility] Last Admin: 01/27/19 10:25 Dose: 200 mg Atorvastatin Calcium (Lipitor) 40 mg PO HS [facility] Last Admin: 01/26/19 21:47 Dose: 40 mg Colchicine (Colchicine) 0.6 mg PO DAILY [facility] Last Admin: 01/27/19 10:24 Dose: 0.6 mg Dextrose/Water (Dextrose 50%-Water Syringe) 50 ml IV PRN PRN PRN Reason: Hypoglycemia Enoxaparin Sodium (Lovenox) 40 mg SC 0900 [facility] Last Admin: 01/27/19 10:24 Dose: 40 mg Famotidine (Pepcid) 20 mg PO Q24HR [facility] Last Admin: 01/27/19 10:25 Dose: 20 mg Glucagon (Glucagon) 1 mg IM PRN PRN PRN Reason: Hypoglycemia Guaifenesin (Mucinex) 600 mg PO Q12HR [facility] Last Admin: 01/27/19 10:25 Dose: 600 mg Guaifenesin/Dextromethorphan (Robitussin Dm) 15 ml PO Q4H PRN PRN Reason: Cough Dextrose/Water (D5w) 1,000 mls @ 0 mls/hr IV .Q0M PRN PRN Reason: Hypoglycemia Levofloxacin 750 mg/ Device 150 mls @ 100 mls/hr IVPB Q2DAYS@1400 [facility] Last Admin: 01/26/19 15:51 Dose: 150 mls Ceftriaxone Sodium 2 gm/ (Sodium Chloride) 100 mls @ 200 mls/hr IVPB 0800 KATARZYNA Last Admin: 01/27/19 10:25 Dose: 100 mls Insulin Human Lispro (Humalog) 0 units SC .MODERATE SLIDING SC PRN PRN Reason: Moderate Correctional Scale Morphine Sulfate (Morphine) 2 mg SLOW IVP Q5MIN PRN PRN Reason: Chest Pain Nitroglycerin (Nitrostat) 0.4 mg SL Q5MIN PRN PRN Reason: Chest Pain Ondansetron HCl (Zofran) 4 mg IVP Q6H PRN PRN Reason: Nausea/Vomiting Last Admin: 01/26/19 15:48 Dose: 4 mg Potassium Chloride (K-Dur) 40 meq PO NOW KATARZYNA Stop: 01/27/19 15:30 Vital Signs & Weight: Vital Signs Temp Pulse Pulse Resp BP BP Pulse Ox 01/27/19 11:32 98.7 F 75 16 148/87 H 95 01/27/19 09:45 78 150/101 H 01/27/19 08:00 99.1 F 76 16 140/90 94 L 01/27/19 03:39 98.2 F 80 16 154/93 H 99 Weight 165 lb 4.8 oz - Physical Exam General: alert & oriented x3 HEENT: mucus membranes moist Neck: supple neck Cardiac: regular rate and rhythm, S1/S2 Lungs: clear to auscultation Neuro: cranial nerve 2-12 intact - Labs Result Diagrams: 01/28/19 05:05 01/28/19 05:05 Troponin/CKMB Troponin I 0.228 ng/mL (< 0.028) H 01/26/19 04:55 - Telemetry Sinus rhythms and dysrhythmias: sinus rhythm - Assessment/Plan Assessment/Plan: 1. Acute on Chronic systolic HF with EF 20-25% - stable with RA; on Lasix and bblocker; holding MARIANNA/ARB for now 2. Ischemic CMY - possible LHC for decreased EF when his infection is clear depending on symptoms. Could consider a nuclear study first. If there is a large area of scar then continue medical treatment. Consider cath if reversible ischemia is noted. 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 He is asymptomatic from a cardiac standpoint. 3. PNA - on ABX IV; 4. Lt leg cellulitis - 5. hx of [place] in 2016 with medical tx only - 6. HTN - stable 7. OLENA - 8. Gout - MAR reviewed * Echo on 01/24/2019 with EF 20-25%, akinetic anterior wall, septum and apex, mild ERV, mod dilated LA, mod ERA, mild MR, AR, TR, and MS Pt. seen and eval. by me. I agree with the above A/P. He seems to be a little better today. No cardiac complaints. Chest clear. RRR, edema and erythema of left lower leg. I will sign off. If any cardiac issues please consult me again. gjmays <Addendum on 01/28/2019> * Per Dr Ortiz, the pt can have stress test in [place] since the pt is asymptomatic at this time. Ordered LifeVest today (01/28/2019). Hope he can afford it. The pt can f/u with [facility] [employer] in [place].
[2019-01-27] MEDS ORDERED: Potassium Chloride 20 MEQ TAB PO SCH (13:30)
--- NOTE | 2019-01-27 16:12 | CON ---
DATE OF CONSULTATION: 01/27/2019 REASON FOR CONSULTATION: Bacteremia. HISTORY OF PRESENT ILLNESS: A 64-year-old who has been here in [facility] for the past 2 weeks, visiting family members from [place]. He has a history of hypertension and coronary artery disease with prior myocardial infarction a few years ago. He was well until the day before admission when he developed fever, chills, dyspnea, and cough. On arrival, his BP was 160/90, pulse 106, respiratory rate 28 to 30, O2 saturation 96%, and temperature 103. The exam shows tachycardia, decreased breath sounds at bases. The impression was left lower lobe pneumonia, started on Rocephin and levofloxacin. There was concern with left lower extremity because of tenderness. We have 2 sets of blood cultures positive for group B Streptococcus. He has improved. His white cell count is still at 18,000 and hemoglobin 15. Creatinine is at 1.8. Currently, Mr. Sena is awake. He denies headaches. No visual symptoms, sore throat, odynophagia or dysphagia. A little bit of cough intermittently. No chest pain. No abdominal pain or diarrhea. No genitourinary symptoms. He has pain in the left leg because of the findings noted in the physical examination. PAST MEDICAL HISTORY: 1. Coronary artery disease. 2. Hypertension. 3. Myocardial infarction. 4. Osteoarthritis. SURGICAL HISTORY: Cataracts. SOCIAL HISTORY: He is from [place] for the past 2 weeks, visiting family. Never smoker. FAMILY HISTORY: Noncontributory. ALLERGIES: NONE. CURRENT MEDICATIONS: 1. DuoNeb. 2. Zyloprim. 3. Lipitor. 4. Coreg. 5. Ceftriaxone. 6. Colchicine. 7. Famotidine. 8. Levofloxacin. PHYSICAL EXAMINATION: VITAL SIGNS: Temperature has been normalized over the past 2 days, BP 140/80, pulse 75, respirations 16, and O2 saturation 95. SKIN: Erythema with tenderness in a circumferential distribution, extending from the area immediately below the left knee all the way towards the foot, left lower extremity. No blistering. Tender area of lymphadenitis in the left groin. HEENT: Ocular movements conjugate. Numerous teeth in place, in very good shape. NECK: Supple. No jugular vein distention or carotid bruits. No thyromegaly. LUNGS: Symmetric, clear breath sounds. HEART: S1 and S2. Regular rate without murmurs. No S3 or S4. ABDOMEN: Soft, not distended or tender. No ascites. No bladder distention. EXTREMITIES: No joint inflammatory activity. Pulses 1+ in dorsalis pedis. NEUROLOGIC: Nonfocal. Cognitive function appears to be intact. LABORATORY STUDIES: Sodium 140, creatinine 2.03 and 1.83, and uric acid 11.5. White cell count 22,000, 18,000 now. Urinalysis was not done. Microbiology with group B strep, 2/2 sets of blood cultures. ASSESSMENT: 1. Coronary artery disease. 2. Cellulitis of left leg with group B strep bacteremia. DISCUSSION: The most likely scenario here is a cellulitis due to group B strep bacteremia. He also has lymphadenitis in left groin. The respiratory symptoms are most likely due to the bacteremia, not secondary to primary pneumonia. Continue Rocephin. Discontinue levofloxacin. Transition to Keflex when further improvement. Discharge on Keflex 500 mg q.6 h. for another 10 days. Compression stockings. May need a prophylactic Penicillin VK for a few months. Job ID: [id number]
--- NOTE | 2019-01-27 17:36 | EKG ---
Test Reason : Blood Pressure : / mmHG Vent. Rate : 076 BPM Atrial Rate : 076 BPM P-R Int : 188 ms QRS Dur : 116 ms QT Int : 446 ms P-R-T Axes : 059 125 118 degrees QTc Int : 501 ms Sinus rhythm with occasional Premature ventricular complexes Possible Left atrial enlargement Incomplete right bundle branch block Left posterior fascicular block Inferior infarct , age undetermined Abnormal ECG No previous ECGs available Confirmed by MEGHAN CUMMINGS (2) on 01/27/2019 5:36:27 PM Referred By: JOSEMANUEL Confirmed By:MEGHAN CUMMINGS
[2019-01-27] MEDS: Carvedilol 6.25 MG TAB PO SCH (18:05)
[2019-01-27] MEDS: HYDROcodone/Acetaminophen 5/325 mg Tablet PO PRN (21:55)
[2019-01-27] MEDS: Atorvastatin Calcium 40 MG TAB PO SCH (21:55)
[2019-01-28 05:36] LABS: #Eosinphils 0.2 thou/uL (0.0-0.7); #Monocytes 0.6 thou/uL (0.11-0.59); #Neutrophils 6.1 thou/uL (1.40-6.50); %Eosinophils 2.3 % (0.0-10.0); %Lymphocytes 13.2 % (21.0-51.0); %Neutrophils 77.4 % (42.0-75.0); Hemoglobin 13.3 g/dL (14.0-18.0); Mean Corpuscular HGB CONC 32.4 g/dL (32.0-36.0); Mean Corpuscular Hemoglobin 30.7 pg (27.0-31.0); Mean Corpuscular Volume 94.8 fL (78.0-98.0); Mean Platelet Volume 10.3 fL (7.4-10.4); Platelet Count 124 thou/uL (130-400); RBC Distribution Width 14.4 % (11.5-14.5); Red Blood Cell (RBC) Count 4.34 mill/uL (4.70-6.10); White Blood Cell (WBC) Count 7.9 thou/uL (4.8-10.8)
[2019-01-28 05:48] LABS: Albumin 2.7 g/dL (3.4-4.8); Anion Gap 12 mmol/L (10-20); BUN (Urea Nitrogen) 31 mg/dL (8.4-25.7); BUN/Creatinine Ratio 18.34; Calc. Creatinine Clearance 46 mL/min (70-130); Calcium 8.6 mg/dL (7.8-10.44); Carbon Dioxide 23 mmol/L (23-31); Chloride 101 mmol/L (98-107); Estimated GFR-MDRD 41; Glucose 71 mg/dL (80-115); Phosphorus 2.9 mg/dL (2.3-4.7); Potassium 3.4 mmol/L (3.5-5.1); Sodium 133 mmol/L (136-145)
[2019-01-28] MEDS ORDERED: cefTRIAXone\\ROCEPHIN 1 GM in Sodium Chloride 0.9% 100 ML IVPB SCH (08:00)
[2019-01-28] MEDS: Famotidine 20 MG TAB PO SCH (09:38)
[2019-01-28] MEDS: Allopurinol 100 MG TAB PO SCH (09:38)
[2019-01-28] MEDS: Carvedilol 6.25 MG TAB PO SCH ×2 (09:38→19:46)
[2019-01-28] MEDS: guaiFENesin ER 600 MG TAB PO SCH (09:38)
[2019-01-28] MEDS: Enoxaparin Sodium 40 MG/0.4 ML SYRINGE SC SCH (09:39)
[2019-01-28 16:08] VITALS: TEMP 97.8
[2019-01-28 19:46] VITALS: BP 154/88
== END 2019-01-28 19:56 | disposition home or self-care (01) | DRG 871 ==
LOC: ERS 04:03 → 2SE 04:29
PROVIDERS: ADMIT Internal Medicine; ATTEND Internal Medicine
DX: A41.9 Sepsis, unspecified organism (principal); J18.9 Pneumonia, unspecified organism; I21.4 Non-ST elevation (NSTEMI) myocardial infarction; I50.23 Acute on chronic systolic (congestive) heart failure; L03.116 Cellulitis of left lower limb; N17.9 Acute kidney failure, unspecified; E87.6 Hypokalemia; I25.10 Atherosclerotic heart disease of native coronary artery without angina pectoris; E79.0 Hyperuricemia without signs of inflammatory arthritis and tophaceous disease; I25.5 Ischemic cardiomyopathy; I11.0 Hypertensive heart disease with heart failure; B95.5 Unspecified streptococcus as the cause of diseases classified elsewhere; M19.90 Unspecified osteoarthritis, unspecified site; Z98.42 Cataract extraction status, left eye
CPT/HCPCS: 36415; 36416; 71046; 76770; 80048; 80061; 80069; 80202; 82570; 83735; 83880; 84156; 84300; 84443; 84484; 84540; 84550; 84560; 85025; 87070; 87205; 87804; 90471; 90662; 90670; 93005; 93010; 93306; 93970; 99285; G0008; G0009; J0692; J0696; J1650; J1940; J1956; J2405; J3370; J3475; J3490; J7050